=== PATIENT | female | born 1975 | race Caucasian/White ===

== ENCOUNTER 2017-06-09 09:34 | Emergency (ER) | payer MEDICAID ==
[2017-06-09] MEDS ORDERED: DIAZEPAM 5 MG TABLET PO ONE (09:50)
[2017-06-09] MEDS ORDERED: MECLIZINE 25 MG TABLET PO ONE (09:50)
--- NOTE | 2017-06-09 09:57 | Emergency Department Record ---
History of Present Illness - General Chief Complaint: Dizziness Stated Complaint: DIZZINESS Time Seen by Provider: 06/09/17 09:36 Source: Patient Mode of Arrival: Ambulatory Limitations: No limitations - History of Present Illness Initial Comments: 42 yo female presents to ED with a CC of dizziness symptoms that began last night around 23:30 following intercourse with her SO. Patient reports a spinning sensation as well as nausea symptoms. Patient reports turning of the head and position changes worsen her symptoms. Patient denies history of similar symptoms previously, and denies focal weakness, tingling, or numbness symptoms. Patient denies health problems other than HTN. MD Complaint: Dizziness Onset/Timin -: Hour(s) Timing: Sudden onset Description: Sense of movement History of Same: No History of Trauma: No Severity: Moderate Improves With: Remaining still Worsens With: Movement, Position Associated Symptoms: Denies other symptoms - [place] Coma Scale Eye Response: (4) Open spontaneously Motor Response: (6) Obeys commands Verbal Response: (5) Oriented [place] Total: 15 - Related Data Previous Rx's Medication Instructions Recorded Diazepam [Valium] 5 mg PO Q8H PRN #10 tab 06/09/17 Meclizine HCl [Antivert] 25 mg PO Q8H PRN #15 tablet 06/09/17 Allergies Allergy/AdvReac Type Severity Reaction Status Date / Time No Known Allergies Allergy no allergy Verified 06/09/17 09:41 Travel Screening - Travel/Exposure Within Last 30 Days Have you traveled within the last 30 days?: No Review of Systems Constitutional: Denies: Chills, Fever, Malaise, Night sweats Eyes: Denies: Eye discharge, Eye pain ENT: Denies: Congestion, Ear pain, Epistaxis Respiratory: Denies: Cough, Dyspnea Cardiovascular: Denies: Chest pain, Dyspnea on exertion Endocrine: Denies: Fatigue, Heat or cold intolerance Gastrointestinal: Reports: Nausea. Denies: Abdominal pain, Vomiting Genitourinary: Denies: Incontinence, Retention Musculoskeletal: Denies: Arthralgia, Back pain, Gout, Joint swelling Skin: Denies: Bruising, Change in color Neurological: Reports: Vertigo. Denies: Abnormal gait, Confusion, Headache, Seizure Psychiatric: Denies: Anxiety Hematological/Lymphatic: Denies: Anemia, Blood Clots Past Medical History - SOCIAL HISTORY Smoking Status: Never smoker Alcohol Use: None Drug Use: None - RESPIRATORY Hx Respiratory Disorders: No Hx Sleep Apnea: Yes Hx of CPAP: No - CARDIOVASCULAR Hx Cardio Disorders: Yes Hx Hypertension: Yes Comment:: high cholesterol - NEURO Hx Neuro Disorders: Yes Hx Dizziness: Yes - GI Hx GI Disorders: No - Hx Genitourinary Disorders: No - ENDOCRINE Hx Endocrine Disorders: Yes Hx Thyroid Disease: Yes - MUSCULOSKELETAL Hx Musculoskeletal Disorders: No - PSYCH Hx Psych Problems: Yes Hx Anxiety: Yes Hx Depression: Yes - HEMATOLOGY/ONCOLOGY Hx Hematology/Oncology Disorders: No Family Medical History Any Significant Family History?: No Physical Exam - General General Appearance: Alert, Oriented x3, Cooperative, Mild distress Limitations: No limitations - Head Head exam: Atraumatic, Normocephalic, Normal inspection Head exam detail: negative: Abrasion, Contusion, Warner's sign, General tenderness, Hematoma, Laceration - Eye Eye exam: Normal appearance, Other (Horizontal nystagmus worse with lateral gaze to the left). negative: Conjunctival injection, Periorbital swelling, Periorbital tenderness, Scleral icterus - ENT Ear exam: negative: Auricular hematoma, Auricular trauma Nasal Exam: negative: Active bleeding, Discharge, Dried blood, Foreign body Mouth exam: negative: Drooling, Laceration, Muffled voice, Tongue elevation - Neck Neck exam: Normal inspection. negative: Meningismus, Tenderness - Respiratory Respiratory exam: Normal lung sounds bilaterally. negative: Rales, Respiratory distress, Rhonchi, Stridor - Cardiovascular Cardiovascular Exam: Regular rate, Normal rhythm, Normal heart sounds - GI/Abdominal GI/Abdominal exam: Soft. negative: Rebound, Rigid, Tenderness - Rectal Rectal exam: Deferred - exam: Deferred - Extremities Extremities exam: Normal inspection. negative: Calf tenderness, Pedal edema, Tenderness - Back Back exam: Denies: CVA tenderness (R), CVA tenderness (L) - Neurological Neurological exam: Alert, Oriented X3, Other (Patient's symptoms worsen with sitting up from supine, and then with standing from sitting position, HINTS examination is negative for central etiology (no vertical skew, horizontal nystagmus most pronounced to the left).). negative: Motor sensory deficit - Psychiatric Psychiatric exam: Normal affect, Normal mood - Skin Skin exam: Normal color. negative: Abrasion Type of lesion: negative: abrasion Course Vital Signs 06/09/17 09:37 Temperature 98.4 F Pulse Rate 93 H Respiratory 20 Rate Blood Pressure 137/77 Pulse Ox 95 - Reevaluation(s) Reevaluation #1: 06/09/17 09:55 Patient seen and examined, denies focal weakness symptoms. Patient does exhibit nystagmus with lateral gaze testing and patient does not have any clinical signs for cerebellar dysfunction on examination. Will treat the patient symptomatically, obtain EKG and basic laboratory studies and re- evaluate. CT imaging is not felt to be of benefit based on the patient's history and physical examination findings. Reevaluation #2: 06/09/17 10:15 EKG: NSR 89 Normal axis, normal intervals T wave inversion III only, no other acute ST-T wave changes are present. Reevaluation #3: 06/09/17 10:27 Labs reviewed and are grossly unremarkable for an acute process. Reevaluation #4: 06/09/17 11:07 Patient was re-evaluated and reports significant improvement in her symptoms. Patient appears stable for discharge on Valium and Antivert as needed for her vertigo symptoms as discussed. Medical Decision Making - Lab Data Result diagrams: 06/09/17 10:00 06/09/17 10:00 Disposition Disposition: Discharge Clinical Impression: Peripheral vertigo Qualifiers: Laterality: left Qualified Code(s): H81.392 - Other peripheral vertigo, left ear Disposition: Home, Self-Care Condition: (2) Stable Instructions: Vertigo (ED) Additional Instructions: Return to ED if your symptoms worsen or if you have any concerns. Antivert and Valium as directed. Follow-up with your family doctor in 3-5 days as directed. Prescriptions: Diazepam [Valium] 5 mg PO Q8H PRN #10 tab PRN Reason: Dizziness Meclizine HCl [Antivert] 25 mg PO Q8H PRN #15 tablet PRN Reason: Dizziness Forms: Patient Portal Access Time of Disposition: 11:11 Quality - Quality Measures Quality Measures: N/A - Blood Pressure Screening Does Patient Have Any of the Following: No Blood Pressure Classification: Pre-Hypertensive BP Reading Systolic Measurement: 137 Diastolic Measurement: 77 Screening for High Blood Pressure: < Pre-Hypertensive BP, F/U Documented > [ [id number]] Pre-Hypertensive Follow-up Interventions: Referral to alternative/primary care provider.
[2017-06-09 10:09] LABS: HEMATOCRIT 40.4 % (35.0-47.0); HEMOGLOBIN 13.9 gm/dl (11.6-16.0); MEAN CELL VOLUME 87.4 fl (81-97); MEAN CORPUSCULAR HEMOGLOBIN 30.1 pg (27-33); MEAN CORPUSCULAR HGB CONC 34.4 g/dl (32-36); MEAN PLATELET VOLUME 9.9 fl (7.4-10.4); PLATELET COUNT 152 K/uL (130-400); RED BLOOD COUNT 4.62 M/uL (3.80-5.40); RED CELL DISTRIBUTION WIDTH 13.8 % (11.5-14.5); WHITE BLOOD COUNT W/O DIFF 7.3 K/uL (4.2-12.2)
[2017-06-09 10:17] LABS: PLATELET ESTIMATE NORMAL (NORMAL)
[2017-06-09] MEDS ORDERED: ONDANSETRON 4 MG ODT TABLET SL ONE (10:17)
[2017-06-09 10:21] LABS: ALB/GLOB RATIO 1.1 (1.1-1.8); ALBUMIN 3.5 gm/dL (3.5-5.0); ALKALINE PHOSPHATASE 62 U/L (38-126); ALT/SGPT 56 U/L (9-52); ANION GAP 8.9 (7-16); AST/SGOT 26 U/L (14-36); BILIRUBIN,TOTAL 0.81 mg/dL (0.2-1.3); BLOOD UREA NITROGEN 15 mg/dL (7-17); CARBON DIOXIDE 25.1 mmol/L (22-30); CREATININE 0.6 mg/dL (0.52-1.04); EST GLOMERULAR FILTRATION RATE > 60 ml/min; GLUCOSE,RANDOM 134 mg/dL (70-110); TOTAL PROTEIN 6.6 gm/dL (6.3-8.2)
== END 2017-06-09 11:17 | disposition home or self-care (01) ==
LOC: ER 09:34
DX: H81.392 Other peripheral vertigo, left ear (principal); I10 Essential (primary) hypertension
CPT/HCPCS: 99284 ×2; 80053; 85027; 93005; 93010; J3490

== ENCOUNTER 2018-02-25 21:36 | Emergency (ER) | payer MEDICAID ==
[2018-02-25] MEDS ORDERED: IBUPROFEN 600 MG TABLET PO ONE (21:51)
--- NOTE | 2018-02-25 21:51 | Emergency Department Record ---
History of Present Illness - General Chief complaint: Extremity Problem Stated complaint: INJURY TOLT LEG Source: Patient Mode of Arrival: Ambulatory Limitations: No limitations - History of Present Illness Initial comments: 43 yo female present with sudden sharp left calf pain while walking. She was asymptomatic prior to the pain. She stepped and felt a tearing type feeling in the proximal to mid calf. No warmth or swelling. No bruising. No direct tenderness of the achilles tendon. No history of DVT. No HRT. No numbness, weakness. She has pain with plantar flexion against resistance and palpation. MD Complaint: Other (Left calf injury) -: Hour(s) Location: Left, Lower Leg -: Yes Myalgia Radiation: Proximal Consistency: Constant Improves with: Immobilization Worsens with: Nothing Associated Symptoms: Denies other symptoms - Related Data Allergies Allergy/AdvReac Type Severity Reaction Status Date / Time lisinopril Allergy Mild Unverified 12/14/17 13:05 Review of Systems Constitutional: Denies: Chills, Fever, Malaise, Weakness Eyes: Denies: Eye discharge ENT: Denies: Congestion, Throat pain Respiratory: Denies: Cough, Dyspnea, Hemoptysis, Stridor, Wheezes Cardiovascular: Denies: Chest pain, Palpitations, Syncope Endocrine: Denies: Fatigue, Polydipsia, Polyuria Gastrointestinal: Denies: Abdominal pain, Diarrhea, Nausea, Vomiting Genitourinary: Denies: Dysuria, Urgency Musculoskeletal: Reports: Myalgia. Denies: Arthralgia, Back pain, Joint swelling, Neck pain Skin: Denies: Bruising, Change in color, Rash Neurological: Denies: Headache, Numbness, Weakness Psychiatric: Denies: Anxiety Hematological/Lymphatic: Denies: Blood Clots, Easy bleeding, Easy bruising Past Medical History - SOCIAL HISTORY Smoking Status: Never smoker Drug Use: None - RESPIRATORY Hx Respiratory Disorders: No Hx Sleep Apnea: Yes Hx of CPAP: No - CARDIOVASCULAR Hx Cardio Disorders: Yes Hx Hypertension: Yes Comment:: high cholesterol - NEURO Hx Neuro Disorders: Yes Hx Dizziness: Yes - GI Hx GI Disorders: No - Hx Genitourinary Disorders: No - ENDOCRINE Hx Endocrine Disorders: Yes Hx Thyroid Disease: Yes - MUSCULOSKELETAL Hx Musculoskeletal Disorders: No - PSYCH Hx Psych Problems: Yes Hx Anxiety: Yes Hx Depression: Yes - HEMATOLOGY/ONCOLOGY Hx Hematology/Oncology Disorders: No Physical Exam - General General Appearance: Alert, Oriented x3, Cooperative, No acute distress Limitations: No limitations - Head Head exam: Normal inspection - Eye Eye exam: Normal appearance. negative: Conjunctival injection, Scleral icterus - ENT ENT exam: Normal exam Ear exam: Normal external inspection Nasal Exam: Normal inspection Mouth exam: Normal external inspection - Neck Neck exam: Normal inspection, Full ROM. negative: Tenderness - Cardiovascular Peripheral Pulses: 2+: Dorsalis Pedis (R) - Extremities Extremities exam: Normal inspection, Calf tenderness, Full ROM, Normal capillary refill, Tenderness. negative: Joint swelling Image of Full Body: 1 - tenderness of the calf to palpation, no swelling, no knee or popliteal tenderness - Back Back exam: Reports: Normal inspection - Neurological Neurological exam: Alert, Oriented X3 - Psychiatric Psychiatric exam: Normal affect, Normal mood - Skin Skin exam: Dry, Intact, Normal color, Warm Course - Reevaluation(s) Reevaluation #1: The history is sudden pain with a step. Not gradual onset as would be expected with a DVT. This is consistent with a muscle acute injury. No risk factors for DVT. 02/25/18 21:53 Disposition Disposition: Discharge Clinical Impression: Myalgia Disposition: Home, Self-Care Condition: (1) Good Instructions: Musculoskeletal Pain (ED) Additional Instructions: elevate the leg to prevent swelling call your doctor for a recheck this week Use the walker to minimize any weight bearing. Forms: Patient Portal Access Time of Disposition: 22:09 Quality - Quality Measures Quality Measures: N/A - Blood Pressure Screening Does Patient Have Any of the Following: Active Dx of HTN Blood Pressure Classification: Hypertensive Reading Systolic Measurement: 162 Diastolic Measurement: 106 Screening for High Blood Pressure: Patient Exclusion, Hx of HTN [[id number]]
== END 2018-02-25 22:27 | disposition home or self-care (01) ==
LOC: ER 21:36
DX: S86.902A Unspecified injury of unspecified muscle(s) and tendon(s) at lower leg level, left leg, initial encounter (principal); X50.0XXA Overexertion from strenuous movement or load, initial encounter; Y93.01 Activity, walking, marching and hiking; I10 Essential (primary) hypertension
CPT/HCPCS: 99283